=== PATIENT | male | born 1985 | race Caucasian/White ===

== ENCOUNTER 2021-08-26 20:26 | Emergency (ER) | payer MEDICAID ==
[~2021-08-26] VITALS: Ht 175.3 cm; Wt 77.0 kg
[2021-08-26] MEDS ORDERED: LIDOCAINE HCL 1% 20ML VIAL (Pyxis) INJ INFIL ONE (21:15)
[2021-08-26] MEDS ORDERED: CEFAZOLIN 1000MG PREMIX 50 ML IV ONE (21:15)
[2021-08-26 21:20] LABS: BASOPHILS % 0.3 % (0.0-2.0); EOSINOPHILS % 0.2 % (0.0-5.0); HEMATOCRIT. 40.8 % (42.0-52.0); HEMOGLOBIN. 14.1 g/dL (14.0-18.0); LYMPHOCYTES % 18.3 % (20.0-50.0); MEAN CORPUSCULAR HEMOGLOBIN 30.4 pg (28.0-32.0); MEAN PLATELET VOLUME 8.2 fl (7.4-10.4); MONOCYTES % 3.6 % (2.0-8.0); NEUTROPHILS % 77.6 % (40.0-76.0); PLATELET 237 x1000/uL (130-400); RED BLOOD CELL COUNT 4.63 mill/uL (4.7-6.1); RED CELL DISTRIBUTION WIDTH 13.3 % (11.6-14.6)
[2021-08-26 21:26] LABS: CHLORIDE 109 mEq/L (98-107)
[2021-08-26 21:29] LABS: PROTHROMBIN TIME 10.3 sec (9.6-11.0)
[2021-08-26] MEDS ORDERED: HYDROCODONE/ACETAMINOPHEN 5/325MG TABLET PO ONE (22:00)
[2021-08-26] MEDS ORDERED: IBUP-2030 MT (22:27)
[2021-08-26] MEDS ORDERED: HYDR-4001 MT (22:27)
[2021-08-26] MEDS ORDERED: CEPH250C2 MT (22:27)
[2021-08-26 23:34] VITALS: BP 138/78
== END 2021-08-26 23:35 | disposition home or self-care (01) ==
LOC: ER 20:26
DX: S91.211A Laceration without foreign body of right great toe with damage to nail, initial encounter (principal); X58.XXXA Exposure to other specified factors, initial encounter; Y93.89 Activity, other specified; Y92.89 Other specified places as the place of occurrence of the external cause; Y99.8 Other external cause status; F17.290 Nicotine dependence, other tobacco product, uncomplicated
CPT/HCPCS: 12001; 36415; 73660; 80053; 85025; 85610; 96365; 99284; J0690; J3490